=== PATIENT | female | born 1955 | race Caucasian/White ===

== ENCOUNTER 2017-07-24 01:45 | Day surgery (SDC) | payer BC ==
[2014-08-12 09:47] VITALS: Ht 165.1 cm; Wt 65.8 kg
[~2017-07-24] VITALS: Ht 165.1 cm; Wt 65.8 kg
[~2017-07-24 01:45] MED LIST: AMLO-99 PO; BIMA2.5D5 OP; CEPH-13 PO; CIPR-344 PO; CLIN300C99 PO; ETAN25DI2 SQ; FOLI-68 PO; HYDR-385 PO; HYDROCORTISONE 100 MG/2 ML IVP ONE; LEFL20TA PO; LOSA50TA72 PO; METH2.5T43 PO; NAPR500T31 PO; PRE5 PO; PRED-1 PO; RIT100I IV; TIMO5DRO3 OP; [UNRECOGNIZED DRUG - CODE] PO
[2017-07-24] MEDS ORDERED: HYDROCORTISONE 100 MG/2 ML IVP ONE (06:20)
[2017-07-24 08:20] VITALS: BP 136/91
--- NOTE | 2017-07-24 09:02 | RADIOLOGY IMAGING REPORT ---
FACILITY: [facility] PATIENT NAME: Chastity Burgos : 1955 MR: [id number] V: [id number] EXAM DATE: ORDERING PHYSICIAN: MAGNO BLACK TECHNOLOGIST: Location: [facility] - [place] Patient: Chastity Burgos : 1955 Visit/Account:[id number] Date of Sevice: 07/24/2017 Cervical Spine, 3 Views INDICATION: Rheumatoid arthritis COMPARISON: None available FINDINGS Skull base through C4: Negative C4-5 has 3 mm of anterolisthesis, mild disc space narrowing, endplate osteophytes and advanced facet bone hypertrophy, greater on the right side. C5-6: Vertebral bodies are fused. Mild bilateral facet bone hypertrophy. C6-7: Severe disc space narrowing, large anterior endplate osteophytes, endplate sclerosis, mild face t bone hypertrophy. C6-7: Unremarkable. IMPRESSION: 1. C4-5 advanced facet bone hypertrophy causing grade 1 anterolisthesis. 2. C5-6 anterior fusion. 3. C6-7 severe degenerative disc change. Report Dictated By: Carole Dejesus MD at 07/24/2017 8:53 AM Report E-Signed By: Carole Dejesus MD at 07/24/2017 9:00 AM WSN:[email or web address]
[2017-07-24] MEDS ORDERED: fentaNYL CITR 100 MCG/2 ML AMP ONE (09:49)
[2017-07-24] MEDS ORDERED: MIDAZOLAM 2 MG/2 ML VIAL IVP PRN (10:25)
[2017-07-24] MEDS ORDERED: FAMOTIDINE 20 MG TAB PO ONE (10:25)
[2017-07-24] MEDS ORDERED: LIDOCAINE/SOD BICARB 8.4% SYR ID ONE (10:45)
[2017-07-24] MEDS ORDERED: NORMOSOL R SOLN(*) 1000 ML BAG 1,000 ML IV PRN (10:45)
[2017-07-24] MEDS ORDERED: ONDANSETRON 4 MG/2 ML VIAL ONE (11:00)
[2017-07-24] MEDS ORDERED: LIDOCAINE MPF 1% 5 ML VIAL ONE (11:00)
[2017-07-24] MEDS ORDERED: DEXAMETHASONE SOD PHOS 10MG/ML ONE (11:00)
[2017-07-24] MEDS ORDERED: ceFAZolin 1 GM VIAL ONE (11:00)
[2017-07-24] MEDS ORDERED: ePHEDrine 25 MG/5 ML DISP.SYR IVP ONE (11:11)
[2017-07-24] MEDS ORDERED: NEOMYCIN/POLYMYX/BACITR 30 GM TP ONE (11:35)
[2017-07-24] MEDS ORDERED: HYDR-385 PO (12:22)
[2017-07-24] MEDS ORDERED: APAP/HYDROCODONE 325/5 TAB ONE (12:50)
[2017-07-24 13:02] VITALS: BP 124/87
[2017-07-24 13:15] VITALS: BP 126/85
[2017-07-24 13:17] VITALS: BP 130/87
[2017-07-24 13:18] VITALS: BP 138/91
--- NOTE | 2017-07-24 16:49 | OPERATIVE REPORT 1 ---
EVENT DATE: July 24, 2017 SURGEON: Lucas Crocker MD ANESTHESIOLOGIST: Gael West MD ANESTHESIA: General. AIRLINE MANAGER: Christopher Leblanc PA-C PREOPERATIVE DIAGNOSIS Chronic draining sinus, left medial elbow. POSTOPERATIVE DIAGNOSIS Chronic draining sinus, left medial elbow, with extension of sinus tract down to fascia, but not involving ulnar nerve or joint. PROCEDURE PERFORMED Excision of chronic draining sinus tract with primary closure, including deep cultures and pathology assessment. ESTIMATED BLOOD LOSS Minimal. INTRAVENOUS FLUIDS 800 TOURNIQUET TIME Nine SPECIMENS Ellipsed skin and sinus tract sent to Pathology along with deep tissues. COMPLICATIONS No complications. IMPLANTS USED No implants. SUMMARY OF PROCEDURE The patient was brought into the operating room and placed on the OR table in the supine position with a hand table at her left side. After obtaining adequate general anesthesia, the left upper extremity was prepped and draped in the usual sterile fashion. She had not received any preoperative antibiotics. The sinus tract was ellipsed, and I carefully dissected along its margins, always palpating where the ulnar nerve would be. Intermittently, I would take a hemostat and pass it down through the sinus tract, observing the location of the sinus tunnel. It seemed to track relatively distal and anterior. We continued to follow this out and then removed the entire tract along with the deep tissue, but we did not have to ever expose the ulnar nerve or the joint. The entire mass was sent to Pathology where they would do cultures and also pathology assessment of the core margins at the sinus tract to determine if there has been any cellular atypia. The wound was irrigated, and then she had a primary closure with nylon suture, followed by dry, sterile dressing. She was awakened and transferred to the recovery area in stable condition. KIRSTEN
== END 2017-07-24 13:02 | disposition home or self-care (01) ==
LOC: OR 01:45
PROVIDERS: ATTEND Orthopaedic Surgery Hand Surgery
DX: M06.322 Rheumatoid nodule, left elbow (principal)
CPT/HCPCS: 11403; 72040; 87071; 88305; J0690; J1100; J2001; J2250; J2405; J3010

== ENCOUNTER → 2018-05-21 | Outpatient (CLI) | payer BC ==
[2014-08-12 09:47] VITALS: BMI 23.0
[~2018-05-21] MED LIST changes: +AMLO-127 PO; -AMLO-99 PO; -HYDROCORTISONE 100 MG/2 ML IVP ONE; -LOSA50TA72 PO; +LOSA50TA80 PO
== END ==
LOC: LAB 12:09
PROVIDERS: ATTEND Orthopaedic Surgery Hand Surgery
DX: M25.442 Effusion, left hand (principal); M25.542 Pain in joints of left hand
CPT/HCPCS: 36415; 85027; 85651; 86140

== ENCOUNTER → 2018-05-21 | Outpatient (REF) | payer BC ==
[2014-08-12 09:47] VITALS: BMI 23.0
== END ==
LOC: ZZSENDIN 12:00
PROVIDERS: ATTEND Orthopaedic Surgery Hand Surgery
DX: L08.9 Local infection of the skin and subcutaneous tissue, unspecified (principal); M79.642 Pain in left hand
CPT/HCPCS: 88305

== ENCOUNTER → 2018-05-24 | Outpatient (REF) | payer BC ==
[2014-08-12 09:47] VITALS: BMI 23.0
== END ==
LOC: ZZPBJ 05-21 22:29
PROVIDERS: ATTEND Orthopaedic Surgery Hand Surgery
DX: B95.7 Other staphylococcus as the cause of diseases classified elsewhere (principal)
CPT/HCPCS: 87070; 87073; 87077; 87186; 87205

== ENCOUNTER → 2018-08-12 | Outpatient (CLI) | payer BC ==
[2014-08-12 09:47] VITALS: BMI 23.0
== END ==
LOC: LAB 14:24
PROVIDERS: ATTEND Orthopaedic Surgery Hand Surgery
DX: M86.142 Other acute osteomyelitis, left hand (principal); B95.61 Methicillin susceptible Staphylococcus aureus infection as the cause of diseases classified elsewhere
CPT/HCPCS: 87070; 87073; 87077; 87186; 87205

== ENCOUNTER → 2018-08-17 | Outpatient (CLI) | payer BC ==
[2014-08-12 09:47] VITALS: BMI 23.0
[~2018-08-17] MED LIST changes: +ALTEPLASE RECOMB 2 MG VIAL IVP PRN; +DEXTROSE 5%(*) 100 ML BAG 100 ML IVPB PRN; +ETAN50PE3 SQ; +NS(*) 0.9% 100 ML BAG 100 ML IVPB PRN; +NS(*) 0.9% 250 ML BAG 250 ML IVPB PRN; +WATER FOR INJ,STERILE 20 ML IVP PRN; +ceFAZolin(*) 2GM/D5W 50ML 50 ML IVPB ONE
[2018-08-17 16:44] VITALS: BP 157/91
[2018-08-17 17:35] VITALS: BP 143/96
== END ==
LOC: SPU 16:40
PROVIDERS: ATTEND Orthopaedic Surgery Hand Surgery
DX: M86.9 Osteomyelitis, unspecified (principal)
CPT/HCPCS: 96365; J7050; J0690

== ENCOUNTER → 2018-08-17 | Outpatient (CLI) | payer BC ==
[2014-08-12 09:47] VITALS: BMI 23.0
[~2018-08-17] MED LIST changes: -ALTEPLASE RECOMB 2 MG VIAL IVP PRN; -DEXTROSE 5%(*) 100 ML BAG 100 ML IVPB PRN; -NS(*) 0.9% 100 ML BAG 100 ML IVPB PRN; -NS(*) 0.9% 250 ML BAG 250 ML IVPB PRN; -WATER FOR INJ,STERILE 20 ML IVP PRN; -ceFAZolin(*) 2GM/D5W 50ML 50 ML IVPB ONE
== END ==
LOC: LAB 08:21
PROVIDERS: ATTEND Orthopaedic Surgery Hand Surgery
DX: I08.8 Other rheumatic multiple valve diseases (principal); M25.441 Effusion, right hand; M79.641 Pain in right hand
CPT/HCPCS: 85651; 86140

== ENCOUNTER → 2018-08-17 | Outpatient (CLI) | payer BC ==
[2014-08-12 09:47] VITALS: BMI 23.0
[2018-08-17 08:47] LABS: PLATELET COUNT, AUTOMATED 307 K/uL (150-450)
== END ==
LOC: LAB 08:25
PROVIDERS: ATTEND Anesthesiology
DX: Z01.812 Encounter for preprocedural laboratory examination (principal)
CPT/HCPCS: 36415; 82040; 82247; 82310; 82374; 82435; 82565; 82947; 84075; 84132; 84155; 84295; 84450; 84460; 84520; 85025

== ENCOUNTER → 2018-08-17 | Outpatient (REF) | payer BC ==
[2014-08-12 09:47] VITALS: BMI 23.0
== END ==
LOC: ZZSENDIN 12:00
PROVIDERS: ATTEND Orthopaedic Surgery Hand Surgery
DX: M86.142 Other acute osteomyelitis, left hand (principal)
CPT/HCPCS: 88305; 88311

== ENCOUNTER → 2018-08-17 | Outpatient (CLI) | payer BC ==
[2014-08-12 09:47] VITALS: BMI 23.0
[~2018-08-17] MED LIST changes: +LIDOCAINE MPF 1% 5 ML VIAL ONE
--- NOTE | 2018-08-17 16:39 | RADIOLOGY IMAGING REPORT ---
FACILITY: [facility] PATIENT NAME: Chastity Burgos : 1955 MR: [id number] V: [id number] EXAM DATE: ORDERING PHYSICIAN: CHUNG PENN TECHNOLOGIST: Location: [facility] - [place] Patient: Chastity Burgos : 1955 Visit/Account:[id number] Date of Sevice: 08/17/2018 US GUIDANCE VASCULAR ACCESS, PICC LINE INSERTION HISTORY: Long-term antibiotic therapy. Need for central venous access. COMPARISON: None. PROCEDURE: Informed written consent was obtained. A time out was performed in the procedure room. Using ultrasou nd for preliminary evaluation, the basilic vein superior to the right antecubital fossa was selected for venipuncture. Skin was prepped with betadine and draped in a sterile fashion. Lidocaine 1% 4 cc w as used for skin and deep soft tissue anesthesia. Using ultrasound guidance, a micropuncture needle w as used to enter the basilic vein. A guidewire was advanced into the needle and vein. Needle was exch anged with a peel away sheath. The guidewire was advanced to the cavoatrial junction for measurement, and then removed to use for PICC length trimming. The PICC catheter was advanced though the sheath a nd positioned with distal tip at the cavoatrial junction. The PICC was flushed with sterile saline. The peel away sheath was removed. The right arm PICC was secured to the arm using the adhesive device . A sterile dressing was applied. The patient tolerated the procedure well. No complications. Fluoro scopy and ultrasound images were stored on PACS. IMPRESSION: 1. Successful right upper extremity PICC line placement with distal tip at the cavoatrial junction. 2. Fluoroscopic time utilized 0.3 minutes. Fluoroscopic dose utilized 46.1 uGy*m2 Report Dictated By: Brenden Padilla MD at 08/17/2018 4:30 PM Report E-Signed By: Brenden Padilla MD at 08/17/2018 4:33 PM WSN:[email or web address]
--- NOTE | 2018-08-17 16:39 | RADIOLOGY IMAGING REPORT ---
FACILITY: PATIENT NAME: Chastity Burgos : 1955 MR: [id number] V: [id number] EXAM DATE: ORDERING PHYSICIAN: CHUNG PENN TECHNOLOGIST: Location: [facility] - [place] Patient: Chastity Burgos : 1955 Visit/Account:[id number] Date of Sevice: 08/17/2018 US GUIDANCE VASCULAR ACCESS, PICC LINE INSERTION HISTORY: Long-term antibiotic therapy. Need for central venous access. COMPARISON: None. PROCEDURE: Informed written consent was obtained. A time out was performed in the procedure room. Using ultrasou nd for preliminary evaluation, the basilic vein superior to the right antecubital fossa was selected for venipuncture. Skin was prepped with betadine and draped in a sterile fashion. Lidocaine 1% 4 cc w as used for skin and deep soft tissue anesthesia. Using ultrasound guidance, a micropuncture needle w as used to enter the basilic vein. A guidewire was advanced into the needle and vein. Needle was exch anged with a peel away sheath. The guidewire was advanced to the cavoatrial junction for measurement, and then removed to use for PICC length trimming. The PICC catheter was advanced though the sheath a nd positioned with distal tip at the cavoatrial junction. The PICC was flushed with sterile saline. The peel away sheath was removed. The right arm PICC was secured to the arm using the adhesive device . A sterile dressing was applied. The patient tolerated the procedure well. No complications. Fluoro scopy and ultrasound images were stored on PACS. IMPRESSION: 1. Successful right upper extremity PICC line placement with distal tip at the cavoatrial junction. 2. Fluoroscopic time utilized 0.3 minutes. Fluoroscopic dose utilized 46.1 uGy*m2 Report Dictated By: Brenden Padilla MD at 08/17/2018 4:30 PM Report E-Signed By: Brenden Padilla MD at 08/17/2018 4:33 PM WSN:[email or web address]
== END ==
LOC: RAD 14:57
PROVIDERS: ATTEND Orthopaedic Surgery Hand Surgery
DX: Z79.2 Long term (current) use of antibiotics (principal)
CPT/HCPCS: 36573; C1751; J2001

== ENCOUNTER → 2018-09-07 | Outpatient (REF) | payer BC ==
[2014-08-12 09:47] VITALS: BMI 23.0
[~2018-09-07] MED LIST changes: -LIDOCAINE MPF 1% 5 ML VIAL ONE
== END ==
LOC: ZZPBJ 17:11
PROVIDERS: ATTEND Orthopaedic Surgery Hand Surgery
DX: L08.9 Local infection of the skin and subcutaneous tissue, unspecified (principal)
CPT/HCPCS: 87070; 87073; 87116; 87176; 87205; 87252